=== PATIENT | female | born 1955 | race Two or more races ===

== ENCOUNTER 2020-11-03 10:17 | Inpatient (IN) | payer OTHER ==
[~2020-11-03] VITALS: Ht 170.2 cm; Wt 83.9 kg
[~2020-11-03 10:17] MED LIST: AMLODIP
[2020-11-04] MEDS ORDERED: AMLODIPINE-BEN1 EAC3 (08:09)
== END 2020-11-06 17:30 | disposition home or self-care (01) | DRG 740 ==
LOC: O/R 11-04 04:40 → OB/GYN 11-04 06:37
PROVIDERS: ADMIT Specialist; ATTEND Specialist
PROC: 0UT24ZZ Resection of Bilateral Ovaries, Percutaneous Endoscopic Approach (ICD-10-PCS; 2020-11-04)
PROC: 0UT74ZZ Resection of Bilateral Fallopian Tubes, Percutaneous Endoscopic Approach (ICD-10-PCS; 2020-11-04)
PROC: 07BC4ZZ Excision of Pelvis Lymphatic, Percutaneous Endoscopic Approach (ICD-10-PCS; 2020-11-04)
PROC: 0UT94ZZ Resection of Uterus, Percutaneous Endoscopic Approach (ICD-10-PCS; principal; 2020-11-04 07:00)
DX: C54.1 Malignant neoplasm of endometrium (principal); C77.5 Secondary and unspecified malignant neoplasm of intrapelvic lymph nodes; N72 Inflammatory disease of cervix uteri; N80.1 Endometriosis of ovary; N80.0 Endometriosis of uterus; N83.8 Other noninflammatory disorders of ovary, fallopian tube and broad ligament; I11.9 Hypertensive heart disease without heart failure; I49.9 Cardiac arrhythmia, unspecified

== ENCOUNTER 2021-06-08 08:03 | Inpatient (IN) | payer OTHER ==
[~2021-06-08] VITALS: Ht 170.2 cm; Wt 160.0 kg
[~2021-06-08 08:03] MED LIST changes: +AMLODIPINE-BEN1 EAC3
--- NOTE | 2021-06-08 08:22 | NUR ---
SE RECIBE PACIENTE ALERTA Y ORIENTADA QUIEN REFIERE TENER DOLOR ABDOMINAL HACE ALYSIA SEMANA.PTE NO BURROWS TENIDO EPISODIOS DE VOMITOS. Y REFIERE LA ULTIMA EVACUACION FUE EL KATALINA Y FUE BLANDA. REFIERE SENTIR EL ABDOMEN SILAS. SE MONITOREAN LOS SV Y SE UBICA EN PASILLO.
--- NOTE | 2021-06-08 09:26 | NUR ---
PACIENTE EVALUADA POR EL A QUIEN ORDENA TRATAMIENTO MEDICO. SE ORIENTA A PACIENTE SOBRE EL MISMO ESTA REFIERE ENTENDER.JOSÉ XIONG REALIZA MUESTRAS DE LABORATORIO BAJO MEDIDAS ASEPTICAS Y ENVIA A LABORATORIO. SE ORIENTA A PACIENTE SOBRE U/A.SE ESPERA POR XRAYS.
--- NOTE | 2021-06-08 15:55 | NUR ---
PTE ALERTA Y ORIENTADA X 3 ESFERAS EN JACK CON BARANDAS ELEVADAS,SIN FAMILIAR AL MOMENTO DE LA ALLISON,NO REFIERE DOLOR AL MOMENTO,AREA DE VENOPUNCION PATENTE Y CHUYITA DE EDEMA.PENDIENTE A RE-EVALUACION.
--- NOTE | 2021-06-08 18:35 | NUR ---
SE ORIENTA PT SOBRE INSERCION DE NGT EL CUAL REFIERE ENTENDER.SE REALIZA PROCEDIMIENTO BAJO MEDIDAS ASEPTICAS EN JOHN LT # 16 EL CUAL TOLERA,EL MISMO SE CORROBORA CON ASISTENCIA DE MR SMALL SIN RESIDUAL GASTRICO.SE MORIAH MUESTRA DE COVID MOLECULAR Y SE COLOCAN FLUUIDOS DE MANTENIMIENTO.SE MAYELIN BAJO OBSRVACION POR CAMBIOS.
--- NOTE | 2021-06-09 07:21 | NUR ---
SE RECIBE PE FEMENINA DE 65 YRS ALERTA CONCIENTE Y TRANQUILA,PTE EN JACK CON BARABDA ELEVADA, PTE CON IVF'S PATENTE Y CHUYITA DE EDEMA SE OBSERVA PTE CON NASOGATRICO . SE MANTIENE EN ESPERA DE MEDICO CONSULTOR KATIE BENNETT LA CUAL SE MANTIENE NOTIFICADO. SE MANTIENE AL MOMETO CHUYITA DE DOLOR . SE OBSERVA POR CAMBIOS.
--- NOTE | 2021-06-09 11:19 | NUR ---
SE LE REALIZA A PACIENTE IRRIGACION CON 0.9% NSS KAMLA ORDEN MEDICA, SE OBSERVA SECRECIONES OSCURAS Y ESPESAS. SE EDUCA A APCIENTE DEL PROCEDOIMIENTO Y ESTA REFIERE ENTENDER.
--- NOTE | 2021-06-09 12:13 | NUR ---
DR WILSON EVALUA A PTE EN PRESENCIA DE JOSÉ KENNEDY QUIEN ORIENTA SOBRE DX MEDICO. PACIENTE REFIERE ENTENDER Y NO PRESENTA DUDAS NI PREGUNTAS AL MOMENTO. SE MANTIENE EN ESPERA DE CONSULTA CON DR AMADOR KENNEDY GINECOLOGO ONCOLOGO PARA EVALUACION DE PTE. SE LE DA SEGUIMIENTO.
--- NOTE | 2021-06-09 12:59 | NUR ---
DRA SHEEHAN REALIZA LLAMADA A DR KENNEDY QUIEN ORDENA CONSULTA CON DR VILLAR. SE REALIZA LLAMADA A DR VILLAR QUIEN NO CONTESTA MCKENZIE SE LE MAYELIN MENSAJE DE VOZ. SE NOTIFICA A DR WILSON QUIEN REFIERE LE ELVIA SEGUIMIENTO CON DR KENNEDY.
--- NOTE | 2021-06-10 00:30 | NUR ---
SE RECIBE PTE DEL TURNO ANTERIOR, ALERTA Y ORIENTADA EN HOMERO JAZZY ESFERAS, UBICADA EN CAMA NIVEL MAS BAJO, CHASE DE IDENTIFICACION Y BARANDAS ELEVADAS POR PRECAUCION. SE OBSERVA CON BUEN PATRON RESPIRATORIO Y PIEL TIBIA AL TACTO. IV PATENTE Y CHUYITA DE EDEMA O ERITEMA CON 0.9% NSS @125ML/HR. NGT EN FOSA NASAL LT CONECTADO A SUCCION INTERMITENTE. PENDIENTE CONSULTA CON DR WILSON. SE MANTIENE BAJO OBSERVACION.
[2021-06-14] MEDS ORDERED: DEXAMETHASO4 MG/1 M1 (16:00)
[2021-06-14] MEDS ORDERED: CARBOPLATI10 MG/1 ML (16:00)
[2021-06-14] MEDS ORDERED: FAMOTIDINE20 MG/2 M1 (16:00)
[2021-06-14] MEDS ORDERED: NEULASTA6 MG/0.6 M (16:02)
[2021-06-14] MEDS ORDERED: FOSAPREPITANT (16:03)
[2021-06-14] MEDS ORDERED: PACLITAXEL6 MG/1 ML (16:03)
[2021-06-14] MEDS ORDERED: OMEPRAZOLE20 MG (16:06)
[2021-06-14] MEDS ORDERED: ONDANSETRON4 MG/2 M5 (16:06)
[2021-06-14] MEDS ORDERED: AMLODIPINE-BEN1 EAC3 (16:06)
[2021-06-29] MEDS ORDERED: CIPRO500 MG PO (09:26)
[2021-06-29] MEDS ORDERED: PROTONIX40 MG PO (09:26)
== END 2021-06-29 10:46 | disposition home or self-care (01) | DRG 330 ==
LOC: ER 08:03 → SEC-K 06-10 06:12 → SURH 06-10 06:12 → SEC-K 06-10 10:34 → O/R 06-10 13:42 → SURH 06-10 18:39
PROVIDERS: ADMIT Surgery; ATTEND Surgery
PROC: 0WBH0ZX Excision of Retroperitoneum, Open Approach, Diagnostic (ICD-10-PCS; 2021-06-10)
PROC: 02HV33Z Insertion of Infusion Device into Superior Vena Cava, Percutaneous Approach (ICD-10-PCS; 2021-06-10)
PROC: 0DT80ZZ Resection of Small Intestine, Open Approach (ICD-10-PCS; principal; 2021-06-10 13:15)
PROC: BW21ZZZ Computerized Tomography (CT Scan) of Abdomen and Pelvis (ICD-10-PCS; 2021-06-16)
PROC: 0W9F30Z Drainage of Abdominal Wall with Drainage Device, Percutaneous Approach (ICD-10-PCS; 2021-06-21)
PROC: BW4GZZZ Ultrasonography of Pelvic Region (ICD-10-PCS; 2021-06-21)
PROC: 3E0F7GC Introduction of Other Therapeutic Substance into Respiratory Tract, Via Natural or Artificial Opening (ICD-10-PCS; 2021-06-21)
PROC: 30233N1 Transfusion of Nonautologous Red Blood Cells into Peripheral Vein, Percutaneous Approach (ICD-10-PCS; 2021-06-24)
DX: K56.690 Other partial intestinal obstruction (principal); C78.6 Secondary malignant neoplasm of retroperitoneum and peritoneum; C78.4 Secondary malignant neoplasm of small intestine; C79.89 Secondary malignant neoplasm of other specified sites; C54.1 Malignant neoplasm of endometrium; C76.2 Malignant neoplasm of abdomen; D64.89 Other specified anemias